=== PATIENT | male | born 1960 | race Caucasian/White ===

== ENCOUNTER 2016-09-07 06:28 | Emergency (ER) | payer BC ==
[~2016-09-07] VITALS: Ht 182.8 cm; Wt 90.7 kg
[~2016-09-07 06:28] MED LIST: AMLODIPINE BESY1 TAB PO; ANAPROX DS550 MG PO; CLONIDINE HCL0.1 MG PO; CLONIDINE0.1 MG PO; FLEXERIL5 MG PO; FLOMAX0.4 MG PO; HYDR12.5C PO; LISINOPRIL10 MG PO; PEPCID20 MG PO; PRAVASTATIN SOD40 MG PO; SIMVASTATIN10 MG PO; SUBOXONE 8 MG-1 EACH SL; SUBOXONE 8 MG-21 TA1; TORADOL10 MG PO; XANAX0.5 MG PO
[2016-09-07] MEDS ORDERED: ATENOLOL25 MG PO (06:42)
[2016-09-07] MEDS ORDERED: ATORVASTATIN CA10 M1 PO (06:42)
[2016-09-07] MEDS ORDERED: SUBOXONE 8 MG-1 EACH SL (06:43)
[2016-09-07] MEDS ORDERED: NORVASC5 MG PO (06:43)
[2016-09-07 07:33] LABS: BASO # 0.1 10*3/uL (0.0-0.1); BASO % 0.7 % (0.0-1.0); EOS % 0.3 % (1.0-4.0); HEMATOCRIT 44.9 % (42.0-52.0); LYMPH # 0.9 10*3/uL (1.3-4.4); MEAN CELL VOLUME 87.9 fl (80.0-94.0); MEAN CORPUSCULAR HGB 29.4 pg (27.0-31.0); MEAN CORPUSCULAR HGB CONC 33.4 g/dl (33.0-37.0); MEAN PLATELET VOLUME 10.7 fl (9.6-12.3); MONO # 0.4 10*3/uL (0.1-1.0); MONO % 5.3 % (3.0-9.0); NEUT # 5.8 10*3/uL (2.3-7.9); NEUT % 80.3 % (47.0-73.0); PLATELET COUNT AUTOMATED 201 10*3/uL (130-400); RED BLOOD COUNT 5.11 10*6/uL (4.50-5.90); RED CELL DISTRI WIDTH 13.2 % (0-14.5); WHITE BLOOD COUNT 7.2 10*3/uL (4.8-10.8)
[2016-09-07 07:46] LABS: BILIRUBIN NEGATIVE (NEGATIVE); BLOOD TRACE-LYSED (NEGATIVE); CLARITY CLEAR (CLEAR); COLOR YELLOW (YELLOW); GLUCOSE NEGATIVE (NEGATIVE); KETONE NEGATIVE (NEGATIVE); LEUKO ESTERASE NEGATIVE (NEGATIVE); NITRITE NEGATIVE (NEGATIVE); PH 5.5 (5.0-9.0); PROTEIN NEGATIVE (NEGATIVE); UROBILINOGEN 0.2 E.U./dl (0.2-1.0)
[2016-09-07 07:48] LABS: ALBUMIN 3.9 gm/dl (3.1-4.5); ALKALINE PHOSPHATASE 87 U/L (45-117); BILIRUBIN, TOTAL 0.5 mg/dl (0.2-1.0); BUN 16 mg/dl (7-24); CARBON DIOXIDE 33 mmol/L (21-32); CHLORIDE 104 mmol/L (98-107); EST GLOM FILT AFRICAN AMERICAN > 60 ml/min; GLUCOSE 110 mg/dL (65-99); POTASSIUM 3.9 mmol/L (3.5-5.1); SGOT/AST 20 IU/L (3-35); SGPT/ALT 34 U/L (12-78); SODIUM 142 mmol/L (136-145); TOTAL PROTEIN 7.4 gm/dL (6.4-8.2)
[2016-09-07 07:51] LABS: URINE REFLEX COMMENT NO (NO)
[2016-09-07] MEDS ORDERED: Meclizine25 MG PO (09:23)
== END 2016-09-07 09:33 | disposition home or self-care (01) ==
LOC: ED 06:28
PROVIDERS: Emergency Medicine
DX: R42 Dizziness and giddiness (principal); H81.21 Vestibular neuronitis, right ear; I10 Essential (primary) hypertension; Z79.899 Other long term (current) drug therapy

== ENCOUNTER 2020-08-11 16:10 | Emergency (ER) | payer BC ==
[~2020-08-11] VITALS: Ht 185.4 cm; Wt 95.3 kg
[~2020-08-11 16:10] MED LIST changes: +ATENOLOL25 MG PO; +ATORVASTATIN CA10 M1 PO; +Meclizine25 MG PO; +NORVASC5 MG PO
[2020-08-11 17:31] LABS: BASO % 0.8 % (0.0-1.0); EOS % 0.4 % (1.0-4.0); HEMATOCRIT 48.1 % (42.0-52.0); LYMPH # 1.1 10*3/uL (1.3-4.4); LYMPH % 21.9 % (27.0-41.0); MEAN CELL VOLUME 88.9 fl (80.0-94.0); MEAN CORPUSCULAR HGB 29.2 pg (27.0-31.0); MEAN CORPUSCULAR HGB CONC 32.8 g/dl (33.0-37.0); MEAN PLATELET VOLUME 10.4 fl (9.6-12.3); MONO # 0.8 10*3/uL (0.1-1.0); MONO % 15.5 % (3.0-9.0); PLATELET COUNT AUTOMATED 184 10*3/uL (130-400); RED BLOOD COUNT 5.41 10*6/uL (4.50-5.90); RED CELL DISTRI WIDTH 12.9 % (0-14.5); WHITE BLOOD COUNT 4.9 10*3/uL (4.8-10.8)
[2020-08-11 17:43] LABS: ACT PARTIAL THROMBO TIME 28.2 SECONDS (20.0-32.1)
[2020-08-11 17:48] LABS: ALBUMIN 3.7 gm/dl (3.1-4.5); ALKALINE PHOSPHATASE 133 U/L (45-117); BUN 15 mg/dl (7-24); CHLORIDE 100 mmol/L (98-107); CREATININE 0.71 mg/dL (0.70-1.30); LIPASE 300 U/L (73-393); SGOT/AST 31 IU/L (3-35); SGPT/ALT 55 U/L (12-78); SODIUM 137 mmol/L (136-145); TOTAL PROTEIN 7.7 gm/dL (6.4-8.2); TROPONIN I < 0.015 ng/ml (<0.045)
[2020-08-11] MEDS ORDERED: NORVASC10 MG PO (18:48)
[2020-08-11] MEDS ORDERED: ATENOLOL25 MG PO (18:48)
== END 2020-08-11 19:14 | disposition home or self-care (01) ==
LOC: ED 16:10
PROVIDERS: Emergency Medicine
DX: I10 Essential (primary) hypertension (principal); Z79.899 Other long term (current) drug therapy

== ENCOUNTER 2020-08-16 17:33 | Emergency (ER) | payer BC ==
[~2020-08-16] VITALS: Ht 182.8 cm; Wt 95.3 kg
[~2020-08-16 17:33] MED LIST changes: +NORVASC10 MG PO
== END 2020-08-16 18:37 | disposition home or self-care (01) ==
LOC: ED 17:33
DX: U07.1 COVID-19 (principal); Z79.899 Other long term (current) drug therapy

== ENCOUNTER 2020-08-21 16:27 | Emergency (ER) | payer BC | END 2020-08-21 16:31 | disposition left against medical advice (07) | LOC: ED 16:27 | DX: N20.0 Calculus of kidney (principal); Z53.21 Procedure and treatment not carried out due to patient leaving prior to being seen by health care provider ==

== ENCOUNTER 2021-01-22 17:55 | Emergency (ER) | payer BC ==
[~2021-01-22] VITALS: Ht 182.8 cm; Wt 98.4 kg
[2021-01-22 21:39] LABS: BASO % 0.5 % (0.0-1.0); EOS # 0.1 10*3/uL (0.0-0.4); EOS % 1.2 % (1.0-4.0); HEMATOCRIT 43.5 % (42.0-52.0); LYMPH # 1.8 10*3/uL (1.3-4.4); LYMPH % 21.2 % (27.0-41.0); MEAN CELL VOLUME 88.4 fl (80.0-94.0); MEAN CORPUSCULAR HGB 30.1 pg (27.0-31.0); MEAN PLATELET VOLUME 10.3 fl (9.6-12.3); MONO # 0.6 10*3/uL (0.1-1.0); MONO % 7.4 % (3.0-9.0); NEUT % 69.4 % (47.0-73.0); PLATELET COUNT AUTOMATED 238 10*3/uL (130-400); RED BLOOD COUNT 4.92 10*6/uL (4.50-5.90); RED CELL DISTRI WIDTH 12.6 % (0-14.5); WHITE BLOOD COUNT 8.6 10*3/uL (4.8-10.8)
[2021-01-22 22:00] LABS: ALBUMIN 3.4 gm/dl (3.1-4.5); ALKALINE PHOSPHATASE 102 U/L (45-117); BUN 15 mg/dl (7-24); CHLORIDE 102 mmol/L (98-107); CREATININE 0.88 mg/dL (0.70-1.30); LIPASE 219 U/L (73-393); POTASSIUM 3.5 mmol/L (3.5-5.1); SGOT/AST 18 IU/L (3-35); SGPT/ALT 52 U/L (12-78); SODIUM 137 mmol/L (136-145); TOTAL PROTEIN 7.3 gm/dL (6.4-8.2)
[2021-01-22 22:02] LABS: TROPONIN I < 0.015 ng/ml (<0.045)
== END 2021-01-22 23:10 | disposition left against medical advice (07) ==
LOC: ED 17:55
PROVIDERS: Emergency Medicine
DX: R07.89 Other chest pain (principal); I10 Essential (primary) hypertension; Z79.899 Other long term (current) drug therapy

== ENCOUNTER 2021-06-27 18:21 | Emergency (ER) | payer OTHER, BC ==
[~2021-06-27] VITALS: Wt 99.8 kg
[2021-06-27] MEDS ORDERED: CYCLOBENZAPRINE10 MG PO (21:21)
== END 2021-06-27 21:25 | disposition home or self-care (01) ==
LOC: ED 18:21
DX: S16.1XXA Strain of muscle, fascia and tendon at neck level, initial encounter (principal); S39.012A Strain of muscle, fascia and tendon of lower back, initial encounter; I10 Essential (primary) hypertension; Z79.899 Other long term (current) drug therapy; V49.9XXA Car occupant (driver) (passenger) injured in unspecified traffic accident, initial encounter; Y93.9 Activity, unspecified; Y92.89 Other specified places as the place of occurrence of the external cause; Y99.8 Other external cause status

== ENCOUNTER 2021-12-31 15:11 | Emergency (ER) | payer BC ==
[~2021-12-31] VITALS: Ht 182.8 cm; Wt 99.8 kg
[~2021-12-31 15:11] MED LIST changes: +CYCLOBENZAPRINE10 MG PO
[2021-12-31] MEDS ORDERED: Motrin,Rufen800 MG PO (15:22)
[2021-12-31] MEDS ORDERED: FLOMAX0.4 MG PO (15:22)
[2021-12-31 15:56] LABS: BASO # 0.1 10*3/uL (0.0-0.1); BASO % 0.7 % (0.0-1.0); EOS % 0.5 % (1.0-4.0); HEMATOCRIT 45.3 % (42.0-52.0); LYMPH # 1.4 10*3/uL (1.3-4.4); LYMPH % 17.5 % (27.0-41.0); MEAN CELL VOLUME 88.3 fl (80.0-94.0); MEAN PLATELET VOLUME 10.2 fl (9.6-12.3); MONO # 0.6 10*3/uL (0.1-1.0); MONO % 6.9 % (3.0-9.0); PLATELET COUNT AUTOMATED 202 10*3/uL (130-400); RED BLOOD COUNT 5.13 10*6/uL (4.50-5.90); RED CELL DISTRI WIDTH 12.6 % (0-14.5); WHITE BLOOD COUNT 8.1 10*3/uL (4.8-10.8)
[2021-12-31 16:16] LABS: ALKALINE PHOSPHATASE 110 U/L (45-117); BUN 28 mg/dl (7-24); CHLORIDE 100 mmol/L (98-107); CREATININE 0.87 mg/dL (0.70-1.30); POTASSIUM 4.2 mmol/L (3.5-5.1); SGOT/AST 81 IU/L (3-35); SGPT/ALT 154 U/L (12-78); SODIUM 132 mmol/L (136-145); TOTAL PROTEIN 7.8 gm/dL (6.4-8.2)
== END 2021-12-31 18:30 | disposition home or self-care (01) ==
LOC: ED 15:11
PROVIDERS: Nurse Practitioner Family
DX: R16.0 Hepatomegaly, not elsewhere classified (principal); I10 Essential (primary) hypertension; Z79.899 Other long term (current) drug therapy

== ENCOUNTER → 2022-03-14 | Outpatient (CLI) | payer BC ==
[~2022-03-14] MED LIST changes: +Motrin,Rufen800 MG PO
== END | disposition home or self-care (01) ==
LOC: CARD 13:00
PROVIDERS: ATTEND Internal Medicine
DX: I34.81 Nonrheumatic mitral (valve) annulus calcification (principal); I51.7 Cardiomegaly; R01.1 Cardiac murmur, unspecified

== ENCOUNTER 2022-04-06 14:24 | Emergency (ER) | payer BC | END 2022-04-06 18:11 | disposition left against medical advice (07) | LOC: ED 14:24 | DX: Z53.21 Procedure and treatment not carried out due to patient leaving prior to being seen by health care provider (principal) ==

== ENCOUNTER 2022-08-11 18:24 | Emergency (ER) | payer BC ==
[~2022-08-11] VITALS: Ht 182.8 cm; Wt 108.4 kg
[2022-08-11 19:10] LABS: BASO % 0.3 % (0.0-1.0); EOS # 0.1 10*3/uL (0.0-0.4); EOS % 0.5 % (1.0-4.0); HEMATOCRIT 41.4 % (42.0-52.0); LYMPH # 0.9 10*3/uL (1.3-4.4); LYMPH % 6.8 % (27.0-41.0); MEAN CELL VOLUME 88.1 fl (80.0-94.0); MEAN CORPUSCULAR HGB 29.8 pg (27.0-31.0); MEAN CORPUSCULAR HGB CONC 33.8 g/dl (33.0-37.0); MEAN PLATELET VOLUME 10.7 fl (9.6-12.3); MONO # 0.9 10*3/uL (0.1-1.0); MONO % 7.1 % (3.0-9.0); NEUT # 10.8 10*3/uL (2.3-7.9); PLATELET COUNT AUTOMATED 179 10*3/uL (130-400); RED CELL DISTRI WIDTH 13.4 % (0-14.5); WHITE BLOOD COUNT 12.7 10*3/uL (4.8-10.8)
[2022-08-11 19:29] LABS: ALKALINE PHOSPHATASE 87 U/L (46-116); BUN 19 mg/dl (9-23); CHLORIDE 95 mmol/L (98-107); POTASSIUM 3.9 mmol/L (3.4-5.1); SGPT/ALT 36 U/L (10-49); TOTAL PROTEIN 7.4 gm/dL (6.0-8.0)
[2022-08-11 19:41] LABS: BILIRUBIN Negative (Negative); BLOOD Trace-Lysed (Negative); CLARITY Clear (Clear); COLOR Yellow (Yellow); GLUCOSE Negative (Negative); KETONE Negative (Negative); LEUKO ESTERASE Negative (Negative); NITRITE Negative (Negative); SPECIFIC GRAVITY 1.025 (1.001-1.030); UROBILINOGEN 0.2 E.U./dl (0.0-1.0)
[2022-08-11 19:47] LABS: MUCOUS 1+
[2022-08-11 19:48] LABS: BACTERIA 1+
== END 2022-08-11 21:06 | disposition home or self-care (01) ==
LOC: ED 18:24
PROVIDERS: Internal Medicine
DX: B34.9 Viral infection, unspecified (principal); I10 Essential (primary) hypertension; F41.9 Anxiety disorder, unspecified; E16.2 Hypoglycemia, unspecified; Z20.822 Contact with and (suspected) exposure to COVID-19

== ENCOUNTER 2023-06-17 20:14 | Emergency (ER) | payer BC ==
[~2023-06-17] VITALS: Ht 182.8 cm; Wt 104.3 kg
[2023-06-17 20:35] LABS: BASO % 0.5 % (0.0-1.0); EOS % 0.5 % (1.0-4.0); HEMATOCRIT 42.6 % (42.0-52.0); LYMPH # 1.6 10*3/uL (1.3-4.4); LYMPH % 21.2 % (27.0-41.0); MEAN CELL VOLUME 89.1 fl (80.0-94.0); MEAN CORPUSCULAR HGB 29.7 pg (27.0-31.0); MEAN CORPUSCULAR HGB CONC 33.3 g/dl (33.0-37.0); MEAN PLATELET VOLUME 10.4 fl (9.6-12.3); MONO # 0.5 10*3/uL (0.1-1.0); MONO % 6.7 % (3.0-9.0); NEUT # 5.5 10*3/uL (2.3-7.9); NEUT % 70.8 % (47.0-73.0); PLATELET COUNT AUTOMATED 232 10*3/uL (130-400); RED BLOOD COUNT 4.78 10*6/uL (4.50-5.90); WHITE BLOOD COUNT 7.8 10*3/uL (4.8-10.8)
[2023-06-17 20:59] LABS: BUN 19 mg/dl (9-23); CHLORIDE 102 mmol/L (98-107); LIPASE 25 U/L (12-53); POTASSIUM 3.4 mmol/L (3.4-5.1)
== END 2023-06-17 23:30 | disposition home or self-care (01) ==
LOC: ED 20:14
PROVIDERS: Internal Medicine
DX: Z01.31 Encounter for examination of blood pressure with abnormal findings (principal); R03.0 Elevated blood-pressure reading, without diagnosis of hypertension; I10 Essential (primary) hypertension; F41.9 Anxiety disorder, unspecified

== ENCOUNTER 2025-01-08 04:19 | Emergency (ER) | payer BC ==
[~2025-01-08] VITALS: Ht 182.8 cm; Wt 104.3 kg
[2025-01-08 05:58] LABS: BUN 20 mg/dl (9-23); SGPT/ALT 46 U/L (5-49)
[2025-01-08 05:59] LABS: BASO # 0.1 10*3/uL (0.0-0.1); BASO % 0.9 % (0.0-1.0); EOS # 0.1 10*3/uL (0.0-0.4); EOS % 2.0 % (1.0-4.0); MEAN CELL VOLUME 90.7 fl (80.0-94.0); MEAN CORPUSCULAR HGB 30.0 pg (27.0-31.0); MEAN PLATELET VOLUME 10.7 fl (9.6-12.3); MONO # 0.6 10*3/uL (0.1-1.0); MONO % 8.4 % (3.0-9.0); NEUT # 4.4 10*3/uL (2.3-7.9); NEUT % 63.2 % (47.0-73.0); NUCLEATED RED BLOOD CELL 0.0 % (0.0-0.0); NUCLEATED RED BLOOD CELL 0.0 10*3/uL (0.0-0.0); PLATELET COUNT AUTOMATED 204 10*3/uL (130-400); RED CELL DISTRI WIDTH 12.6 % (0-14.5)
== END 2025-01-08 08:32 | disposition home or self-care (01) ==
LOC: ED 04:19
PROVIDERS: Emergency Medicine
DX: M79.602 Pain in left arm (principal); R06.00 Dyspnea, unspecified; I10 Essential (primary) hypertension; F41.9 Anxiety disorder, unspecified